=== PATIENT | female | born 1970 | race Caucasian/White ===

== ENCOUNTER → 2016-12-07 | Outpatient (CLI) | payer BC ==
[~2016-12-07] MED LIST: MAG-OX400 MG PO; METROGEL 0.75%45 GM TP; MULTIPLE VITAM1 EACH PO; NORCO 5-325 TA1 EACH PO; SEROQUEL DPS100 MG PO; TUMS DPS500 MG PO; ZANTAC DPS150 MG PO
== END | disposition home or self-care (01) ==
LOC: PTH.S 08:21
DX: Z13.220 Encounter for screening for lipoid disorders (principal); R53.83 Other fatigue; Z79.890 Hormone replacement therapy